=== PATIENT | male | born 1990 | race Caucasian/White ===

== ENCOUNTER 2019-03-27 17:34 | Emergency (ER) | payer OTHER ==
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
--- NOTE | 2019-03-28 09:02 | EKG ---
Test Date: 2019-03-27 Test Time: 18:00:24 [employer] Clerk: MIRANDA MEASUREMENT RESULTS: Intervals: Rate: 54 NH: 156 QRSD: 82 QT: 396 QTc: 375 [place]: P: 55 NH: 156 QRS: 59 T: 51 INTERPRETIVE STATEMENTS: Sinus bradycardia Otherwise normal ECG No previous ECG available for comparison Electronically Signed On 03-28-19 09:00:44 CDT by Jayden Skelton
== END 2019-03-27 18:19 | disposition home or self-care (01) ==
LOC: ER 17:34
DX: T75.4XXA Electrocution, initial encounter (principal); W86.0XXA Exposure to domestic wiring and appliances, initial encounter; M79.644 Pain in right finger(s); Z72.0 Tobacco use
CPT/HCPCS: 93005; 99283